=== PATIENT | female | born 2000 | race African-American/Black ===

== ENCOUNTER 2018-10-26 17:06 | Emergency (ER) | payer SELFPAY ==
[~2018-10-26] VITALS: Ht 170.2 cm; Wt 52.3 kg
[2018-10-26 17:27] VITALS: TEMP 98.5
[2018-10-26] MEDS ORDERED: PREDNISONE20 MG PO (18:04)
[2018-10-26 18:55] LABS: BASO % 0.6 % (0.0-2.0); EOS # 0.1 (0.0-0.7); EOS % 0.8 % (0-4.0); GRAN # 4.5 (1.4-6.5); HEMOGLOBIN 11.6 g/dl (12.0-15.0); LYMPH # 1.8 (1.2-3.4); LYMPH % 25.1 % (20.0-51.0); MEAN CELL VOLUME 84 fl (80.0-95.0); MEAN CORPUSCULAR HEMOGLOBIN 27 pg (26.0-32.0); MEAN CORPUSCULAR HGB CONC 33 g/dl (33.0-37.0); MEAN PLATELET VOLUME 9.5 fl (7.4-10.4); MONO # 0.8 (0.1-0.6); MONO % 11.4 % (1.7-9.3); PLATELET COUNT 282 K/mm3 (130-400); RED BLOOD COUNT 4.23 M/mm3 (4.10-5.30)
[2018-10-26 19:04] LABS: HEMATOCRIT 35.7 % (35.0-45.0)
[2018-10-26 19:36] LABS: ALBUMIN 4.3 gm/dL (3.5-5.0); BILIRUBIN,TOTAL 1.4 mg/dL (0.0-1.0); C-REACTIVE PROTEIN 0.7 mg/dL (0.0-0.9); CREATININE, serum 0.8 (0.52-1.25); POTASSIUM 3.4 mmol/L (3.4-5.0); TOTAL PROTEIN 7.2 gm/dL (6.4-8.2)
[2018-10-26 19:59] VITALS: BP 130/84; PULSE 81
== END 2018-10-26 20:06 | disposition home or self-care (01) ==
LOC: COL.ER 17:06
PROVIDERS: Emergency Medicine
DX: R11.2 Nausea with vomiting, unspecified (principal); R19.7 Diarrhea, unspecified; Z79.52 Long term (current) use of systemic steroids
CPT/HCPCS: J2405; J7030